=== PATIENT | female | born 1945 | race Caucasian/White ===

== ENCOUNTER → 2019-02-06 | Outpatient (CLI) | payer MEDICARE | END | disposition home or self-care (01) | LOC: PCVCCLINIC 11:46 | PROVIDERS: ATTEND Internal Medicine | DX: R94.31 Abnormal electrocardiogram [ECG] [EKG] (principal); I10 Essential (primary) hypertension; E78.5 Hyperlipidemia, unspecified; J44.9 Chronic obstructive pulmonary disease, unspecified; G47.33 Obstructive sleep apnea (adult) (pediatric); Z87.891 Personal history of nicotine dependence; Z88.8 Allergy status to other drugs, medicaments and biological substances; Z88.1 Allergy status to other antibiotic agents | CPT/HCPCS: 93005; G0463 ==

== ENCOUNTER → 2019-02-23 | Outpatient (CLI) | payer MEDICARE ==
[~2019-02-23] MED LIST: REGADENOSON 0.4 MG/5 ML DISP.SYRIN. IV ONE
--- NOTE | 2019-02-23 14:51 | PCVCIMAG ---
APPROVED REPORT Study performed: 02/23/2019 08:48:32 EXAM: Comprehensive 2D, Doppler, and color-flow Echocardiogram Patient Location: Echo lab Room #: 2Status: routine BSA: 1.79 HR: 64 bpmBP: 126/76 mmHg Rhythm: NSR Other Information Study Quality: Good Risk Factors: Cardiac Risk Factors: HTN,TOR Indications Abnormal ECG COPD Chest Pain Hypertension/HDD 2D Dimensions IVSd: 8.53 (7-11mm)LVOT Diam: 20.59 (18-24mm) LVDd: 45.19 mm PWd: 8.97 (7-11mm)Ascending Ao: 27.65 (22-36mm) LVDs: 32.05 (25-40mm) Left Atrium: 33.74 (27-40mm) Aortic Root: 26.28 mm LV Single Plane 4CH: 52.68 % LV Single Plane 2CH: 59.73 % Biplane EF: 56.2 % Volumes Left Atrial Volume (Systole) Single Plane 4CH: 32.41 mLSingle Plane 2CH: 34.52 mL Biplane LA Volume: 35.00 mLLA ESV Index: 20.00 mL/m2 Aortic Valve AoV Peak Rashawn.: 1.24 m/s AO Peak Gr.: 6.16 mmHgLVOT Max P.11 mmHg LVOT Max V: 0.88 m/s ARI Vmax: 2.37 cm2 Mitral Valve E/A Ratio: 1.0 MV Decel. Time: 136.40 ms MV E Max Rashawn.: 0.78 m/s MV A Rashawn.: 0.79 m/s IVRT: 117.65 ms TDI E/Lateral E': 8.67E/Medial E': 11.14 Medial E' Rashawn.: 0.07 m/s Lateral E' Rashawn.: 0.09 m/s Pulmonary Valve PV Peak Rashawn.: 0.63 m/sPV Peak Gr.: 1.58 mmHg Pulmonary Vein P Vein S: 0.62 m/sP Vein A: 0.32 m/s P Vein D: 0.38 m/sP Vein A Dur.: 93.4 msec P Vein S/D Ratio: 1.63 Tricuspid Valve TR Peak Rashawn.: 1.89 m/s TR Peak Gr.: 14.26 mmHg TV Vmax: 0.48 m/sPA Pressure: 21.00 mmHg Left Ventricle The left ventricle is normal size. There is normal LV segmental wall motion. There is normal left ventricular wall thickness. Left ventricular systolic function is normal. The left ventricular ejection fraction is within the normal range. LVEF is 55-60%. The left ventricular diastolic function is normal. Right Ventricle The right ventricle is normal size. The right ventricular systolic function is normal. Atria The left atrium size is normal. Right atrium is not well visualized. Aortic Valve Aortic valve is trileaflet. The aortic valve is normal in structure and function. Mnimal aortic valve sclerosis. No aortic regurgitation is present. There is no aortic valvular stenosis. Mitral Valve Moderate mitral annular calcification. Mitral valve leaflets open well. There is trivial mitral valve regurgitation noted. No evidence of mitral valve stenosis. Tricuspid Valve The tricuspid valve is normal in structure. There is trivial tricuspid valve regurgitation noted with a PA pressure of 21 mmHg. Pulmonic Valve The pulmonary valve is normal in structure. There is no pulmonic valvular regurgitation. Great Vessels The aortic root is normal in size. The ascending aorta is normal in size. Aortic arch is normal in caliber. IVC is normal in size and collapses >50% with inspiration. Pericardium There is no pericardial effusion. There is no pleural effusion. <Conclusion> The left ventricle is normal size. LVEF is 55-60%. Aortic valve is trileaflet. The aortic valve is normal in structure and function. Mnimal aortic valve sclerosis. Moderate mitral annular calcification. Mitral valve leaflets open well. The pulmonary valve is normal in structure. There is no pericardial effusion.
--- NOTE | 2019-02-23 15:02 | PCVCIMAG ---
APPROVED REPORT Imaging Protocol: Rest Tc-99m/Stress Tc-99m 1 day Study performed: 02/23/2019 08:52:53 Indication: Chest pain, Dyspnea, Abnormal EKG Patient Location: Out-Patient Stress Nurse: Samara Johnson RN [place] Tech:Scarlet Parnellqing [facility] Ht: 5 ft 3 in Wt: 167 lbs BSA: 1.79 m2 HR: 66 bpm BP: 122/58 mmHg BMI: 29.57 Rhythm: Sinus Rhythm Medical History Medical History: Hyperlipidemia, COPD, Former Smoker Medications: No cardiac medications Allergies: Avelox, EES, Sulfa Cardiac Risk Factors: Age Pretest Chest Pain Characteristics: No chest pain Exercise History: Physically active Resting Data Rest SPECT myocardial perfusion imaging was performed in supine position 45 minutes following the intravenous injection of 10.4 mCi of Tc-99m Sestamibi. Time of rest injection: 0900 Date: 02/23/2019 Administration Route: IV Administration Site: Right AC Pharmacologic Stress Pharmacologic stress test was performed by injecting Regadenoson 0.4 mg IV push over 10-15 seconds immediately followed by the intravenous injection of 34 mCi of Tc-99m Sestamibi. Time of stress injection: 1040 Date: 02/23/2019 Administration Route: IV Administration Site: Right AC Gated Stress SPECT was performed 45 minutes after stress injection. The images were gated to evaluate regional wall motion and calculate left ventricular ejection fraction. Stress Test Details Stress Test: Pharmacologic stress testing performed using 0.4 mg of regadenoson per 5 mL given IV over 10 seconds. Reason for pharmacologic stress test: physical limitation. HRMax Heart Rate (APMHR): 146 bpm Resting HR: 66 bpmTarget HR (85% APMHR): 124 bpm Max HR Achieved: 111 bpm % of APMHR: 76 Recovery HR: 100 bpm BP Resting BP: 122/58 mmHg Max BP: 133/60 mmHg Recovery BP: 113/55 mmHg ECG Resting ECG: Sinus Rhythm Stress ECG: Sinus Tachycardia Recovery ECG: Sinus Tachycardia Clinical Reason for Termination: Completed protocol Stress Symptoms: Leg Fatigue, Headache, Chest pain Exercise duration: 0 min 55 sec Symptoms resolved with caffeine. Stress ECG Conclusion 1. Adequate response to iv lexiscan 2. Inadequate heart rate for an ecg diagnosis Study Data Post stress, the left ventricular ejection was 83%.. SSS: 0 SRS: 2 SDS: 0 TID = 0.84. Perfusion There is a small area of severely reduced uptake in the adjacent segment of the apex wall which is seen on the stress images as well as the resting images. This area thickens and moves normally and is most consistent with attenuation artifact. Nuclear Conclusion ECG Findings: non-diagnostic Clinical Findings: negative for ischemia Nuclear Findings: negative for ischemia Exercise Capacity: not assessed Left Ventricular Function: normal 1. low risk study <Conclusion> 1. Adequate response to iv lexiscan 2. Inadequate heart rate for an ecg diagnosis
== END | disposition home or self-care (01) ==
LOC: PCVCIMAG 08:31
PROVIDERS: ATTEND Internal Medicine
DX: R07.9 Chest pain, unspecified (principal); R94.31 Abnormal electrocardiogram [ECG] [EKG]; J44.9 Chronic obstructive pulmonary disease, unspecified; I10 Essential (primary) hypertension; I35.0 Nonrheumatic aortic (valve) stenosis; R06.09 Other forms of dyspnea
CPT/HCPCS: 78452; 93017; 93306; A9500; J2785